=== PATIENT | female | born 1950 | race Caucasian/White ===

== ENCOUNTER 2018-08-15 23:05 | Inpatient (IN) | payer OTHER, MEDICARE ==
[2018-08-15 23:12] VITALS: BMI 34.3
[2018-08-15] MEDS ORDERED: morphine CARPU-JECT 2 MG/1 ML DISP.SYRIN IVPUSH ONE (23:22)
[2018-08-15] MEDS ORDERED: SODIUM CHLORIDE 1,000 ML IV ONE ×2 (23:22)
--- NOTE | 2018-08-15 23:25 | PDOC ---
Documentation entered by Rosy Pfeiffer SCRIBE, acting as scribe for Celeste Cortez MD. Celeste Cortez MD: This documentation has been prepared by the Margarette coughlin Xhesika, SCRIBE, under my direction and personally reviewed by me in its entirety. I confirm that the documentation accurately reflects all work, treatment, procedures, and medical decision making performed by me. History of Present Illness - General Chief Complaint: Nausea/Vomiting Stated Complaint: N/V/D History Source: Patient Exam Limitations: No Limitations - History of Present Illness Initial Comments: 08/15/18 23:24 Assessment and plan: This is a 67-year-old female with history of diverticulitis and anxiety who comes in complaining of a lot of stress in her life and nausea vomiting and diarrhea secondary to the stress. However she also is complaining of fever and left lower quadrant abdominal pain. You should including CBC, comp, lipase, CAT scan abdomen and pelvis, UA, blood cultures, urine culture Patient being hydrated as she was quite tachycardic at 135 blood pressure however was good and clinically she looked dry. 03:00 Reevaluation patient is in a significant amount of discomfort. Patient's complaining now of back and left flank pain. Patient's CAT scan was normal there was no acute pathology Patient has a very mildly elevated white count and her alkaline phosphatase is very mildly elevated otherwise her blood work is unremarkable. We'll bring patient in for some further hydration and pain The patient is a 67 year old female, with a significant past medical history of anxiety, HTN, and diverticulitis who presents to the emergency department with 2 days of nausea, vomiting and diarrhea. The patient states she is endorsing abdominal pain with subjective fevers, secondary to her symptoms. The patient states she has a sick family member at home and whenever that happens this is how her body responds to stress. The patient states she has been taking pepto bismol and tums with mild relief. The patient was seen at [facility] and was advised to come to the ED for further evaluations. The patient denies chest pain, shortness of breath, headache or dizziness. The patient denies dysuria, frequency, urgency or hematuria. PAST MEDICAL HISTORY: anxiety, HTN, and diverticulitis PAST SURGICAL HISTORY: no significant history FAMILY HISTORY: no pertinent history SOCIAL HISTORY: Pt lives with family and is employed. MEDICATIONS: reviewed ALLERGIES: As per nursing notes 08/16/18 03:42 Admission EKG was done that shows sinus tachycardia at a rate of 122, left anterior hemiblock some LVH with re-pole abnormality and some ST depressions in the 3 through V6. Possible anterior some endocardial injury. Cardiac enzymes were added to current blood work. Past History - Past Medical History Allergies/Adverse Reactions: Allergies Allergy/AdvReac Type Severity Reaction Status Date / Time No Known Allergies Allergy Unverified 08/15/18 23:06 Home Medications: Ambulatory Orders Clonazepam [Klonopin] 1 mg PO DAILY 08/15/18 Review of Systems - Review of Systems Able to Perform ROS?: Yes Comments:: 08/15/18 23:30 General: (+) subjective fevers. No chills, no weakness, no weight loss HEENT: No change in vision. No sore throat,. No ear pain CardioVascular: No chest pain or shortness of breath Respiratory:No cough, or wheezing. Gastrointestinal: (+) vomiting, diarrhea. (+) nausea. Noconstipation, No rectal bleeding Genitourinary: No dysuria, hematuria, or frequency Musculoskeletal: (+) abdominal pain. No joint or muscle pain or swelling Neurologic: No headache, vertigo, dizziness or loss of consciousness Psychiatric: nor depression Skin: No rashes or easy bruising Endocrine: no increased thirst or abnormal weight change Allergic: no skin or latex allergy All other systems reviewed and normal *Physical Exam - Vital Signs Last Vital Signs Temp Pulse Resp BP Pulse Ox 98.5 F 135 H 14 159/100 95 08/15/18 23:08 08/15/18 23:08 08/15/18 23:08 08/15/18 23:08 08/15/18 23:08 - Physical Exam Comments: 08/15/18 23:30 General: Well-nourished well-developed individual, no acute distress HEENT: Throat: (+) dry mucous membranes. Normal, tonsils normal, no erythema or exudate Neck: Supple, no meningeal signs, no lymphadenopathy Eyes::Pupils equal reactive and round, extraocular motion intact Chest: Nontender to palpation Cardiac: S1-S2 normal, regular rate and rhythm, no murmurs rubs or gallops Respiratory: Lungs clear to auscultation bilateral Abdomen: (+) LLQ tenderness. (+) bowel sounds decreased but present. Soft, nondistended Extremities: Warm, dry, no cyanosis, clubbing, or edema Skin: No rashes Neuro: Alert and oriented x3, nonfocal exam, grossly intact, normal gait Psych: Normal mood and affect ED Treatment Course - LABORATORY CBC & Chemistry Diagram: 08/16/18 00:00 08/16/18 00:00 - RADIOLOGY Radiology Studies Ordered: Category Date Time Status ABDOMEN & PELVIS CT WITH CONTR [CT] Stat CT Scan 08/15/18 23:21 Ordered *DC/Admit/Observation/Transfer Diagnosis at time of Disposition: Dehydration, Tachycardia Abdominal pain Qualifiers: Abdominal location: lower abdomen, unspecified Qualified Code(s): R10.30 - Lower abdominal pain, unspecified Nausea and vomiting Qualifiers: Vomiting type: unspecified Vomiting Intractability: non-intractable Qualified Code(s): R11.2 - Nausea with vomiting, unspecified Diarrhea Qualifiers: Diarrhea type: unspecified type Qualified Code(s): R19.7 - Diarrhea, unspecified - Discharge Dispostion Condition at time of disposition: Fair Decision to Admit order: Yes - Referrals - Patient Instructions - Post Discharge Activity
[2018-08-16] MEDS ORDERED: morphine SULFATE 4 MG/ML VIAL ONE ×2 (00:24→03:01)
[2018-08-16 01:11] LABS: WHITE BLOOD COUNT 11.4 K/mm3 (4.0-10.0)
[2018-08-16 01:12] LABS: HEMATOCRIT 41.9 % (32.4-45.2); HEMOGLOBIN 13.7 GM/dL (10.7-15.3); MCH 30.1 pg (25.7-33.7); MCHC 32.8 g/dl (32.0-36.0); MEAN CELL VOLUME 91.7 fl (80-96); MEAN PLT VOLUME 8.3 fl (7.5-11.1); PLATELET COUNT 370 K/MM3 (134-434); RBC 4.57 M/mm3 (3.60-5.2); RDW 13.4 % (11.6-15.6)
[2018-08-16 01:13] LABS: BASO % 0.8 % (0-2.0); EOS % 0.4 % (0-4.5); LYMPH % 12.6 % (8-40); MONO % 10.9 % (3.8-10.2); NEUT % 75.3 % (42.8-82.8)
[2018-08-16 01:39] LABS: POTASSIUM 3.6 mmol/L (3.5-5.1)
[2018-08-16 01:40] LABS: ALBUMIN 3.6 g/dl (3.4-5.0); BILIRUBIN,TOTAL 0.4 mg/dL (0.2-1); CALCIUM 10.2 mg/dL (8.5-10.1); TOT PROT 8.6 g/dl (6.4-8.2)
[2018-08-16] MEDS ORDERED: morphine CARPU-JECT 2 MG/1 ML DISP.SYRIN IVPUSH ONE (02:58)
[2018-08-16] MEDS ORDERED: KETOROLAC TROMETHAMINE 30 MG/1 ML VIAL IVPUSH ONE (02:58)
[2018-08-16] MEDS ORDERED: KETOROLAC TROMETHAMINE 30 MG/1 ML VIAL ONE (03:00)
[2018-08-16] MEDS ORDERED: ALPRAZolam 1 MG TABLET PO PRN (04:02)
[2018-08-16] MEDS ORDERED: ALPRAZolam 0.25 MG TABLET ONE (04:10)
--- NOTE | 2018-08-16 07:43 | HP ---
"CHIEF COMPLAINT: LLQ pain PCP: Dr. Hudson, [place] HISTORY OF PRESENT ILLNESS: 67 year-old female with a PMH significant for HTN, diverticulitis, recurrent sinusitis, and anxiety. Presented to the ED with a complaint of LLQ pain with subjective fever and diarrhea x 2 days. She describes the pain as waxing and waning, worse with movement. She reports 6 watery diarrheal movements every day. She took her temperature at home and it was 102. Patient has had 3-4 diverticulitis flares, last one about two years ago when she was hospitalized. Two recent courses of PO antibiotics for recurrent sinusitis, two months ago and again two weeks ago. En route to the ED she felt her heart pounding and beating fast. She denies chest pain, SOB, MORRIS, orthopnea, but last week her both legs swelled up. Patient vague about home medications, cannot recall what meds she is on. ER course was notable for: (1) BP 176/96, p115 (2) ECG: T wave inversions (3) Troponin neg x 1 Recent Travel: No PAST MEDICAL HISTORY: Hypertension Diverticulitis Anxiety PAST SURGICAL HISTORY: Lumbar spine surgery (S, 2015) C-sections x 2 Right torn meniscus repair Appendectomy Social History: Smoking: Alcohol: Drugs: Family History: Allergies No Known Allergies Allergy (Unverified 08/15/18 23:06) HOME MEDICATIONS: Ambulatory Orders Clonazepam [Klonopin] 1 mg PO DAILY 08/15/18 CONSTITUTIONAL: +fever, loss of appetite Absent: chills, diaphoresis, generalized weakness, malaise, weight change HEENT: Absent: rhinorrhea, nasal congestion, throat pain, throat swelling, difficulty swallowing, mouth swelling, ear pain, eye pain, visual changes CARDIOVASCULAR: +pounding, rapid heart beat Absent: chest pain, syncope, palpitations, irregular heart rate, lightheadedness , peripheral edema RESPIRATORY: Absent: cough, shortness of breath, dyspnea with exertion, orthopnea, wheezing, stridor, hemoptysis GASTROINTESTINAL: +LLQ pain, nausea, diarrhea Absent: abdominal distension, constipation, melena, hematochezia GENITOURINARY: Absent: dysuria, frequency, urgency, hesitancy, hematuria, flank pain, genital pain MUSCULOSKELETAL: Absent: myalgia, arthralgia, joint swelling, back pain, neck pain SKIN: Absent: rash, itching, pallor HEMATOLOGIC/IMMUNOLOGIC: Absent: easy bleeding, easy bruising, lymphadenopathy, frequent infections ENDOCRINE: Absent: unexplained weight gain, unexplained weight loss, heat intolerance, cold intolerance NEUROLOGIC: Absent: headache, focal weakness or paresthesias, dizziness, unsteady gait, seizure, mental status changes, bladder or bowel incontinence PSYCHIATRIC: Absent: anxiety, depression, suicidal or homicidal ideation, hallucinations. PHYSICAL EXAMINATION Vital Signs - 24 hr 08/15/18 08/16/18 08/16/18 23:08 02:12 04:42 Temperature 98.5 F 97.9 F Pulse Rate 135 H Pulse Rate [ 115 H 103 H Right Radial] Respiratory 14 15 14 Rate Blood Pressure 159/100 Blood Pressure 176/96 H 133/70 [Left Arm] O2 Sat by Pulse 95 95 99 Oximetry (%) 08/16/18 08/16/18 05:05 05:06 Temperature 97.7 F Pulse Rate 99 H Pulse Rate [ Right Radial] Respiratory 19 14 Rate Blood Pressure 153/78 Blood Pressure [Left Arm] O2 Sat by Pulse 99 Oximetry (%) GENERAL: Awake, alert, and fully oriented, in no acute distress. Anxious. HEAD: Normal with no signs of trauma. EYES: Pupils equal, round and reactive to light, extraocular movements intact, sclera anicteric, conjunctiva clear. No lid lag. EARS, NOSE, THROAT: Ears normal, nares patent, oropharynx clear without exudates. Dry mucous membranes. LUNGS: Breath sounds equal, clear to auscultation bilaterally. No wheezes, and no crackles. No accessory muscle use. HEART: Regular rate and rhythm, normal S1 and S2 +murmur ABDOMEN: LLQ tenderness; well-healed surgical scar MUSCULOSKELETAL: Normal range of motion at all joints. No bony deformities or tenderness. No CVA tenderness. UPPER EXTREMITIES: 2+ pulses, warm, well-perfused. No cyanosis. No clubbing. No peripheral edema. LOWER EXTREMITIES: 2+ pulses, warm, well-perfused. No calf tenderness. Trace bilateral edema NEUROLOGICAL: Cranial nerves II-XII intact. Normal speech. Laboratory Results - last 24 hr 08/15/18 08/16/18 08/16/18 23:24 00:00 00:00 WBC 11.4 H RBC 4.57 Hgb 13.7 Hct 41.9 MCV 91.7 MCH 30.1 MCHC 32.8 RDW 13.4 Plt Count 370 MPV 8.3 Absolute Neuts (auto) 8.6 H Neutrophils % 75.3 Lymphocytes % 12.6 Monocytes % 10.9 H Eosinophils % 0.4 Basophils % 0.8 Sodium 135 L Potassium 3.6 Chloride 95 L Carbon Dioxide 28 Anion Gap 12 BUN 11 Creatinine 1.0 Est GFR (CKD-EPI)AfAm 67.04 Est GFR (CKD-EPI)NonAf 57.84 Random Glucose 124 H Calcium 10.2 H Total Bilirubin 0.4 AST 24 ALT 18 Alkaline Phosphatase 130 H Creatine Kinase 124 Troponin I 0.05 Total Protein 8.6 H Albumin 3.6 Lipase 98 Urine Color Yellow Urine Appearance Clear Urine pH 5.5 Urine Protein 1+ H Urine Glucose (UA) Negative Urine Ketones Negative Urine Blood Negative Urine Nitrite Negative Urine Bilirubin Negative Urine Urobilinogen 0.2 Ur Leukocyte Esterase Negative ASSESSMENT/PLAN: 67 year-old female with a PMH significant for HTN, diverticulitis, recurrent sinusitis, and anxiety. Admitted for LLQ abdominal pain, diarrhea, reported fever. LLQ abdominal pain Diarrhea --afebrile, mild leukocytosis; last diarrheal movement 24 hours ago per patient; no episodes since arrival to hospital --CTAP: unremarkable, no sign of diverticulitis --recent antibiotic use --send stool studies: c.diff, culture, occult blood --start empiric metronidazole, levofloxacin EKG changes Elevated troponin --ECG: TWI V2-V6 --troponin 0.0.5-->0.58 --Echo: LV normal, EF 55%; RV normal; trace AK --cardiology consult pending --ASA 325mg x 1 given --home med list verified with pharmacy, prescribed Toprol XL 100mg TID?? PCP : Dr. Lulu Alvarado, will call office Anxiety --on multiple medications, see I STOP below --continue Prozac The Drug Utilization Report below displays all of the controlled substance prescriptions, if any, that your patient has filled in the last twelve months. The information displayed on this report is compiled from pharmacy submissions to the Department, and accurately reflects the information as submitted by the pharmacies. This report was requested by: Mary Montano | Reference #: [id number] Others' Prescriptions Patient Name: Herlinda Fernandez Date: 1950 Address: [address] [place] [address] Sex: Female Rx Written Rx Dispensed Drug Quantity Days Supply Prescriber Name 08/06/2018 08/06/2018 zolpidem tartrate 5 mg tablet 30 30 Jenny, Melyssa Garcia MD 07/26/2018 07/26/2018 hydrocodone-acetaminophen 7.5-325 mg tablet 120 30 Jenny , Melyssa Garcia MD 07/12/2018 07/19/2018 diazepam 5 mg tablet 120 30 Jenny, Melyssa Garcia MD 06/26/2018 06/27/2018 zolpidem tart er 6.25 mg tab 30 30 Jenny, Melyssa Garcia MD 06/22/2018 06/22/2018 hydrocodone-acetaminophen 7.5-325 mg tablet 120 30 Jenny , Melyssa Garcia MD 06/12/2018 06/12/2018 diazepam 5 mg tablet 120 30 Jenny, Melyssa Garcia MD 12/30/2017 05/24/2018 zolpidem tart er 6.25 mg tab 30 30 JennyMelyssa MD 05/21/2018 05/21/2018 hydrocodone-acetaminophen 7.5-325 mg tablet 120 30 Jenny , Melyssa Garcia MD 04/25/2018 04/27/2018 diazepam 5 mg tablet 120 30 JennyMelyssa MD 12/30/2017 04/24/2018 zolpidem tart er 6.25 mg tab 30 30 JennyMelyssa MD 04/24/2018 04/24/2018 hydrocodone-acetaminophen 7.5-325 mg tablet 120 30 Jenny , Melyssa Garcia MD 12/30/2017 03/25/2018 zolpidem tart er 6.25 mg tab 30 30 JennyMelyssa MD 03/23/2018 03/25/2018 hydrocodone-acetaminophen 7.5-325 mg tablet 120 30 Jenny , Melyssa Garcia MD 09/08/2017 03/06/2018 diphenoxylate-atropine 2.5-0.025 mg tablet 60 15 Jenny, Melyssa Garcia MD 12/30/2017 02/24/2018 zolpidem tart er 6.25 mg tab 30 30 Jenny, Melyssa Garcia MD 02/19/2018 02/20/2018 diazepam 5 mg tablet 120 30 Jenny, Melyssa Garcia MD 02/19/2018 02/20/2018 hydrocodone-acetaminophen 7.5-325 mg tablet 120 30 Jenny , Melyssa Garcia MD 12/30/2017 01/27/2018 zolpidem tart er 6.25 mg tab 30 30 Jenny, Melyssa Garcia MD 01/17/2018 01/18/2018 hydrocodone-acetaminophen 7.5-325 mg tablet 120 30 Jenny , Melyssa Garcia MD 01/12/2018 01/12/2018 diazepam 5 mg tablet 120 30 Jenny, Melyssa Garcia MD 01/05/2018 01/05/2018 diazepam 5 mg tablet 30 10 Jenny, Melyssa Garcia MD 12/30/2017 12/31/2017 zolpidem tart er 6.25 mg tab 30 30 JennyMelyssa MD 12/22/2017 12/22/2017 clonazepam 1 mg tablet 60 30 Jenny, Melyssa Garcia MD 12/18/2017 12/19/2017 oxycodone-acetaminophen 7.5-325 mg tablet 120 30 Jenny, Melyssa Garcia MD 07/05/2017 12/02/2017 zolpidem tartrate 5 mg tablet 30 30 JennyMelyssa MD 11/15/2017 11/15/2017 oxycodone-acetaminophen 7.5-325 mg tablet 120 30 JennyMelyssa MD 11/10/2017 11/12/2017 clonazepam 1 mg tablet 60 30 JennyMelyssa MD 07/05/2017 11/01/2017 zolpidem tartrate 5 mg tablet 30 30 JennyMelyssa MD 10/10/2017 10/11/2017 oxycodone-acetaminophen 7.5-325 mg tablet 120 30 JennyMelyssa MD 07/05/2017 10/05/2017 zolpidem tartrate 5 mg tablet 30 30 JennyMelyssa MD 09/09/2017 09/09/2017 oxycodone-acetaminophen 7.5-325 mg tablet 120 30 JennyMelyssa MD 09/09/2017 09/09/2017 clonazepam 1 mg tablet 90 30 JennyMelyssa MD 09/08/2017 09/08/2017 diphenoxylate-atropine 2.5-0.025 mg tablet 60 15 Melyssa Alvarado MD 07/05/2017 09/06/2017 zolpidem tartrate 5 mg tablet 30 30 Melyssa Alvarado MD Visit type - Emergency Visit Emergency Visit: Yes ED Registration Date: 08/16/18 Care time: The patient presented to the Emergency Department on the above date and was hospitalized for further evaluation of their emergent condition. - New Patient This patient is new to me today: Yes Date on this admission: 08/16/18 - Critical Care Critical Care patient: No"
[2018-08-16 08:26] LABS: CHOLESTEROL 188 mg/dl (50-200); HDL CHOLESTEROL 49 mg/dl (40-60); LDL CHOLESTEROL (ONLY DFH) 122 mg/dl (5-100); TRIGLYCERIDES 86 mg/dl (0-150)
[2018-08-16] MEDS ORDERED: ASPIRIN 81 MG CHEWABLE TABLETS PO ONE (08:30)
[2018-08-16 09:02] LABS: EPITHELIAL CELLS 1+ /hpf
[2018-08-16] MEDS: clonazePAM 0.5 MG TABLET PO SCH (09:49)
[2018-08-16] MEDS ORDERED: PATIENT'S OWN MEDICATION (NON-FORMULARY) (Clonazepam [Klonopin] 1 MG) PO SCH (10:00)
[2018-08-16] MEDS: FLUoxetine HCL 20 MG CAPSULE (FP) PO SCH (10:30)
--- NOTE | 2018-08-16 13:21 | ECHO ---
Name: INDIA GODOY Exam:Adult Echocardiogram Study Date: 08/16/2018 08:41 AM Age: 67 yrs Reason For Study: SOB Height: 64 in Weight: 201 lb BSA: 2.0 m2 MMode/2D Measurements & Calculations IVSd: 0.76 cm Ao root diam: 2.3 cm LVIDd: 4.4 cm LA dimension: 3.6 cm LVIDs: 2.1 cm LVPWd: 0.71 cm EDV(Teich): 88.3 ml LVOT diam: 2.0 cm ESV(Teich): 15.2 ml Doppler Measurements & Calculations MV E max jose: 77.7 cm/sec MV A max jose: 157.7 cm/sec MV dec slope: 745.9 cm/sec2 MV E/A: 0.49 Ao V2 max: 163.0 cm/sec LV V1 max P.7 mmHg Ao max P.6 mmHg LV V1 mean P.2 mmHg Ao V2 mean: 123.0 cm/sec LV V1 max: 96.5 cm/sec Ao mean P.5 mmHg LV V1 mean: 71.3 cm/sec Ao V2 VTI: 33.8 cm LV V1 VTI: 19.9 cm KIERRA(I,D): 1.9 cm2 KIERRA(V,D): 1.9 cm2 MR max jose: 265.6 cm/sec SV(LVOT): 63.1 ml MR max P.2 mmHg Procedure A complete two-dimensional transthoracic echocardiogram was performed (2D, M-mode, Doppler and color flow Doppler). The study was technically difficult with many images being suboptimal in quality. Left Ventricle The left ventricular size, thickness and function are normal. The left ventricular ejection fraction is normal. Ejection Fraction = 55-60%. No regional wall motion abnormalities noted. Right Ventricle The right ventricle is normal in size and function. Atria Normal left and right atrial size and function. Mitral Valve There is trace mitral regurgitation. Tricuspid Valve No tricuspid regurgitation. There was insufficient TR detected to calculate RV systolic pressure. Aortic Valve No hemodynamically significant valvular aortic stenosis. No aortic regurgitation is present. Pulmonic Valve There is no pulmonic valvular regurgitation. Great Vessels The aortic root is normal size. Pericardium/Pleura There is no pericardial effusion. Interpretation Summary The study was technically difficult with many images being suboptimal in quality. The left ventricular size, thickness and function are normal The right ventricle is normal in size and function. There is trace mitral regurgitation. MD Nigel Merlos 08/16/2018 01:20 PM
[2018-08-16] MEDS ORDERED: HEPARIN NA (PORCINE) 5,000 UNITS/ML 1ML VIAL IVPUSH PRN ×2 (14:25)
[2018-08-16] MEDS ORDERED: HEPARIN SOD,PORK IN 0.45% NACL 25,000 UNITS/500 ML INFUS.BAG IVPB SCH (14:30)
--- NOTE | 2018-08-16 14:40 | HOSP ---
Subjective - Review of Symptoms Events since last encounter: Troponins trending up, 0.05--0.58-->1.25. Plan ASA and beta selena given this morning Repeat ECG: ischemic changes V2-V6 no longer seen Repleted potassium and magnesium Started lovenox 90mg q12h Continue daily ASA 81mg Continue atorvastatin 80mg daily Continue Toprol XL: verified with office of PCP Dr. Melyssa Alvarado that patient takes Toprol XL 100mg daily; this was given this morning; home med rec updated Dispo: transfer to [facility] telemetry. Dr. Carcamo aware. Will see patient shortly. Full code. Physical Examination Vital Signs: Vital Signs Temperature 97.5 F L 08/16/18 10:00 Pulse Rate 84 08/16/18 10:00 Respiratory Rate 18 08/16/18 10:00 Blood Pressure 130/70 08/16/18 10:00 O2 Sat by Pulse Oximetry (%) 97 08/16/18 08:39 Labs: CBC, BMP 08/16/18 00:00 08/16/18 00:00
[2018-08-16] MEDS ORDERED: MAGNESIUM SULF 50% (8.12 MEQ/2 ML-1 GM VIAL) IVPB ONE (14:43)
[2018-08-16] MEDS ORDERED: ATORVASTATIN CA 80 MG TABLET (FP) PO ONE (14:45)
[2018-08-16] MEDS ORDERED: POTASSIUM CHLORIDE TABS 20 MEQ TABLET.ER (FP) PO ONE ×2 (14:45→16:15)
[2018-08-16] MEDS ORDERED: HEPARIN INFUSION - 25,000 UNITS/500 ML INFUS.BAG IVPB SCH ×2 (14:45→14:50)
[2018-08-16] MEDS ORDERED: HEPARIN NA (PORCINE) 5,000 UNITS/ML 1ML VIAL IVPUSH ONE (14:46)
[2018-08-16] MEDS ORDERED: MAGNESIUM SULFATE IN WATER 2 GM/50 ML IVPB IVPB ONE (15:15)
[2018-08-16] MEDS: ENOXAPARIN NA (PORCINE) 100 MG/1 ML DISP.SYRIN SQ SCH (15:20)
--- NOTE | 2018-08-16 16:49 | EKG ---
Test Reason : Blood Pressure : / mmHG Vent. Rate : 122 BPM Atrial Rate : 122 BPM P-R Int : 192 ms QRS Dur : 082 ms QT Int : 312 ms P-R-T Axes : 045 -48 180 degrees QTc Int : 444 ms SINUS TACHYCARDIA POSSIBLE LEFT ATRIAL ENLARGEMENT LEFT ANTERIOR FASCICULAR BLOCK LEFT VENTRICULAR HYPERTROPHY WITH REPOLARIZATION ABNORMALITY INFERIOR INFARCT , AGE UNDETERMINED MARKED ST ABNORMALITY, POSSIBLE ANTERIOR SUBENDOCARDIAL INJURY ABNORMAL ECG WHEN COMPARED WITH ECG OF 19-APR-1999 10:23, SIGNIFICANT CHANGES HAVE OCCURRED Confirmed by KERI NIELSEN MD ([id number]) on 08/16/2018 4:49:46 PM Referred By: MD CRENSHAW Confirmed By:KERI NIELSEN MD
--- NOTE | 2018-08-16 16:50 | EKG ---
Test Reason : Blood Pressure : / mmHG Vent. Rate : 072 BPM Atrial Rate : 072 BPM P-R Int : 190 ms QRS Dur : 082 ms QT Int : 468 ms P-R-T Axes : 015 -40 -18 degrees QTc Int : 512 ms SINUS RHYTHM WITH FREQUENT PREMATURE VENTRICULAR COMPLEXES LEFT AXIS DEVIATION VOLTAGE CRITERIA FOR LEFT VENTRICULAR HYPERTROPHY POSSIBLE LATERAL INFARCT , AGE UNDETERMINED PROLONGED QT ABNORMAL ECG WHEN COMPARED WITH ECG OF 16-AUG-2018 03:29, SIGNIFICANT CHANGES HAVE OCCURRED Confirmed by KERI NIELSEN MD ([id number]) on 08/16/2018 4:49:58 PM Referred By: HORACIO DOOLEY Confirmed By:KERI NIELSEN MD
--- NOTE | 2018-08-16 18:32 | CON.CARD ---
Consult Consult Specialty:: cardio - History of Present Illness Chief Complaint: abd pain History of Present Illness: 67 F presented with hip/abd pain. reports pain in L lateral abdomen near hip--worse with movement, waxing and waning. no back pain, no radiation of above pain could reproduce the pain by pressing over the area also fever at home, reportedly 102 on 08/15. waterry diarrhea x 2 days--reports 6 watery diarrheal movements every day-- however diarrhea stopped since yesterday am. no melena or blood. denies sore throat, cough, URI sx's. Patient has had 3-4 diverticulitis flares, last one about two years ago when she was hospitalized--never had the above type of pain with those. Two recent courses of PO antibiotics for recurrent sinusitis, two months ago and again two weeks ago. En route to the ED she felt her heart pounding and beating fast. initial ECG with deep (downsloping) ischemic ST depressions across precordium > I/avL. troponin 0.05-->0.5-->1.2 never had cp or sob. ECG abnormalities normalized on repeat study abd pain resolved. echo showed normal LV fxn/wall motion. CT abdomen was technically limited study but showed no signs of diverticulitis or other acute abdominal pathology normal temp curve, mild leukocytosis. normal lactate. feels well now--IN USOH PMH: HTN denies DM never cigs +FH: father [place] 70s. one brother fatal [place] 70s. one brother PCI x multiple - Alcohol/Substance Use Hx Alcohol Use: No - Smoking History Smoking history: Unknown if ever smoked Have you smoked in the past 12 months: No Aproximately how many cigarettes per day: 0 Home Medications - Allergies Allergies/Adverse Reactions: Allergies Allergy/AdvReac Type Severity Reaction Status Date / Time No Known Allergies Allergy Unverified 08/15/18 23:06 - Home Medications Home Medications: Ambulatory Orders Clonazepam [Klonopin] 1 mg PO DAILY 08/15/18 Cyclobenzaprine HCl [Flexeril 10 mg] 10 mg PO TID PRN 08/16/18 Diazepam [Valium] 5 mg PO Q6H 08/16/18 Fluoxetine HCl [Prozac -] 40 mg PO DAILY 08/16/18 Hydrocodone/Acetaminophen [[place] 7.5-325 Tablet] 1 each PO QID PRN 08/16/18 Metoprolol Succinate [Toprol Xl] 100 mg PO DAILY 08/16/18 Zolpidem Tartrate [Ambien] 5 mg PO HS 08/16/18 Vital Signs: Vital Signs Temperature 98.5 F 08/16/18 14:00 Pulse Rate 73 08/16/18 14:00 Respiratory Rate 18 08/16/18 14:00 Blood Pressure 134/64 08/16/18 14:00 O2 Sat by Pulse Oximetry (%) 100 08/16/18 14:00 - Other Data Labs, Other Data: CBC, BMP 08/16/18 00:00 08/16/18 00:00 Troponin, BNP 08/16/18 08/16/18 08/16/18 00:00 07:10 12:54 Troponin I 0.05 0.58 H 1.25 H* Troponin, BNP 08/16/18 08/16/18 08/16/18 00:00 07:10 12:54 Troponin I 0.05 0.58 H 1.25 H* Laboratory Tests 08/16/18 08/16/18 08/16/18 00:00 00:00 07:10 WBC 11.4 H Hgb 13.7 Plt Count 370 Sodium 135 L Potassium 3.6 Carbon Dioxide 28 BUN 11 Creatinine 1.0 Lactic Acid AST 24 ALT 18 Troponin I 0.05 0.58 H Triglycerides Cholesterol Total LDL Cholesterol HDL Cholesterol Lipase 98 08/16/18 08/16/18 08/16/18 07:10 12:54 15:00 WBC Hgb Plt Count Sodium Potassium Carbon Dioxide BUN Creatinine Lactic Acid 1.1 AST ALT Troponin I 1.25 H* Triglycerides 86 Cholesterol 188 Total LDL Cholesterol 122 H HDL Cholesterol 49 Lipase Assessment/Plan CXR: weak inspiration; clear lungs/pleura ECG x2: see HPI (max 4mm downsloping STD anterior leads initially (at 3:29 am on 08/16), no ST elevation--resolved on ekg done at 14:20 on 08/16). Echo 08/16/18: nl LV/EF. no RWMA. nl RV size/fxn. normal valves. no RVSP. normal aortic root. no peric effusion NSTEMI: -no anginal sx's, however very ischemic ECG on presentation--normalized on repeat -rising troponins--will f/u serial values (ordered) -LLQ/L hip pain reproducible with palpation, exacerbated bymovement, is definitively NOT an anginal equivalent -? silent MT, vs ? sx's of heart pounding in ambulance to ER was her ACS sx -no RWMA, normal LVSF on echo -no s/sx of PE, and RV normal on echo -sx's not concerning for aortic dissection, and echo shows no retrograde involvement of pericardium/aorta root to cause troponin elevation in any event -VS's very stable, no anemia, no signs of severe infection --i.e. no identifiable triggers for Type II MT -given ASA 325, lovenox started, hi intensity atorvastatin, cont home (hi dose) metoprolol-cont this regimen for now -pt advised she should have non-urgent coronary angiogram in light of family history and markedly abnormal presenting ECG--however in light of asymptomatic status with no signs of shock, chf, or electrical instability, will defer until possibly tomorrow depending on infectious workup and temp curve. will d/w interventionalist whether fever (with no identifiable infectious source) > 24 hrs ago is an ongoing concern. -f/u BCx's (pending) and monitor temp curve overnight HTN: -variable bp's here -on toprol 100 po daily at home--cont here -add amlodipine for aggressive bp control in face of ischemic myocardium HPL: -LDL 120s here -atorva 80 started for ACS treatment abd pain, diarrhea: -TDS CT scan unremarkable -remainder of w/u per hospitalist
[2018-08-16] MEDS: amLODIPine BESYLATE 5 MG TABLET (FP) PO SCH (18:54)
--- NOTE | 2018-08-16 21:19 | HOSP ---
Subjective - Review of Symptoms Events since last encounter: Hospitalist Encounter Patient transferred from [facility] for Elevated Troponin- NSTEMI. Subjective: Arrived to bedside, patient is awake, alert and oriented. She reports dizziness and SOB on ambulation and exertion. Patient reports having "chest pounding" sensation while being transported in the ambulance, lasting 4 seconds- resolved now. She attributes the episode to the bumpy ambulance ride. Patient reports having nausea, non bilious non bloody undigested food emesis with watery non bloody diarrhea since last Monday. Patient reports having generalized weakness as well. Assessment: 67 year-old female with a PMH significant for HTN, diverticulitis, recurrent sinusitis, and anxiety. Admitted for LLQ abdominal pain, diarrhea, reported fever. Plan: Will continue current NSTEMI regimen Serial Troponins Repeat EKG Will d/c Levofloxacin, and start Ceftriaxone secondary to prolonged QT General: Yes: Malaise Cardiovascular: Yes: Light Headedness Neurological: Yes: Weakness Physical Examination Vital Signs: Vital Signs Temperature 98.1 F 08/16/18 18:30 Pulse Rate 82 08/16/18 18:30 Respiratory Rate 19 08/16/18 18:30 Blood Pressure 142/79 08/16/18 18:30 O2 Sat by Pulse Oximetry (%) 100 08/16/18 14:00 Constitutional: Yes: Well Nourished, No Distress, Calm Eyes: Yes: WNL, Conjunctiva Clear, EOM Intact, PERRL HENT: Yes: WNL, Atraumatic, Normocephalic Neck: Yes: WNL, Supple, Trachea Midline Cardiovascular: Yes: WNL, Regular Rate and Rhythm, S1, S2 Respiratory: Yes: Regular, CTA Bilaterally, On Nasal O2, SOB on Exertion Gastrointestinal: Yes: Soft, Abdomen, Obese, Hyperactive Bowel Sounds Breast(s): Yes: WNL Musculoskeletal: Yes: WNL Extremities: Yes: WNL Edema: Yes Edema: LLE: Trace, RLE: Trace Peripheral Pulses WNL: Yes Neurological: Yes: WNL, Alert, Oriented, Cran Nerves II-XII Intact ...Motor Strength: WNL Psychiatric: Yes: WNL, Alert, Oriented Labs: CBC, BMP 08/16/18 00:00 08/16/18 00:00 Laboratory Results - last 24 hr 0508/16/18 08/16/18 23:24 00:00 00:00 WBC 11.4 H RBC 4.57 Hgb 13.7 Hct 41.9 MCV 91.7 MCH 30.1 MCHC 32.8 RDW 13.4 Plt Count 370 MPV 8.3 Absolute Neuts (auto) 8.6 H Neutrophils % 75.3 Lymphocytes % 12.6 Monocytes % 10.9 H Eosinophils % 0.4 Basophils % 0.8 Sodium 135 L Potassium 3.6 Chloride 95 L Carbon Dioxide 28 Anion Gap 12 BUN 11 Creatinine 1.0 Est GFR (CKD-EPI)AfAm 67.04 Est GFR (CKD-EPI)NonAf 57.84 Random Glucose 124 H Lactic Acid Calcium 10.2 H Magnesium Total Bilirubin 0.4 AST 24 ALT 18 Alkaline Phosphatase 130 H Creatine Kinase 124 Troponin I 0.05 Total Protein 8.6 H Albumin 3.6 Triglycerides Cholesterol Total LDL Cholesterol HDL Cholesterol Lipase 98 Urine Color Yellow Urine Appearance Clear Urine pH 5.5 Urine Protein 1+ H Urine Glucose (UA) Negative Urine Ketones Negative Urine Blood Negative Urine Nitrite Negative Urine Bilirubin Negative Urine Urobilinogen 0.2 Ur Leukocyte Esterase Negative Urine RBC 0-3 Urine WBC 0-3 Ur Transition Epith Cell 1+ Urine Bacteria 3+ 08/16/18 08/16/18 08/16/18 07:10 07:10 12:00 WBC RBC Hgb Hct MCV MCH MCHC RDW Plt Count MPV Absolute Neuts (auto) Neutrophils % Lymphocytes % Monocytes % Eosinophils % Basophils % Sodium Potassium Chloride Carbon Dioxide Anion Gap BUN Creatinine Est GFR (CKD-EPI)AfAm Est GFR (CKD-EPI)NonAf Random Glucose Lactic Acid Calcium Magnesium 1.5 L Total Bilirubin AST ALT Alkaline Phosphatase Creatine Kinase Troponin I 0.58 H Total Protein Albumin Triglycerides 86 Cholesterol 188 Total LDL Cholesterol 122 H HDL Cholesterol 49 Lipase Urine Color Urine Appearance Urine pH Urine Protein Urine Glucose (UA) Urine Ketones Urine Blood Urine Nitrite Urine Bilirubin Urine Urobilinogen Ur Leukocyte Esterase Urine RBC Urine WBC Ur Transition Epith Cell Urine Bacteria 08/16/18 08/16/18 12:54 15:00 WBC RBC Hgb Hct MCV MCH MCHC RDW Plt Count MPV Absolute Neuts (auto) Neutrophils % Lymphocytes % Monocytes % Eosinophils % Basophils % Sodium Potassium Chloride Carbon Dioxide Anion Gap BUN Creatinine Est GFR (CKD-EPI)AfAm Est GFR (CKD-EPI)NonAf Random Glucose Lactic Acid 1.1 Calcium Magnesium Total Bilirubin AST ALT Alkaline Phosphatase Creatine Kinase Troponin I 1.25 H* Total Protein Albumin Triglycerides Cholesterol Total LDL Cholesterol HDL Cholesterol Lipase Urine Color Urine Appearance Urine pH Urine Protein Urine Glucose (UA) Urine Ketones Urine Blood Urine Nitrite Urine Bilirubin Urine Urobilinogen Ur Leukocyte Esterase Urine RBC Urine WBC Ur Transition Epith Cell Urine Bacteria Intake & Output 08/13/18 08/14/18 08/15/18 08/16/18 23:59 23:59 23:59 23:59 Intake Total 200 Output Total 2 Balance 198 Weight 90.718 kg 90.718 kg Current Medications Generic Name Dose Route Start Last Admin Trade Name Freq PRN Reason Stop Dose Admin Amlodipine Besylate 5 mg 08/16/18 18:45 08/16/18 18:54 Norvasc - PO 5 mg DAILY ANTONIA Administration Aspirin 81 mg 08/17/18 10:00 Ecotrin - PO DAILY ANTONIA Atorvastatin Calcium 80 mg 08/17/18 10:00 Lipitor - PO DAILY ANTONIA Clonazepam 1 mg 08/16/18 10:00 08/16/18 09:49 Klonopin - PO 1 mg DAILY ANTONIA Administration Enoxaparin Sodium 90 mg 08/16/18 15:00 08/16/18 15:20 Lovenox - SQ 90 mg Q12H ANTONIA Administration Fluoxetine HCl 40 mg 08/16/18 10:00 08/16/18 10:30 Prozac - PO 40 mg DAILY ANTONIA Administration Metronidazole 500 mg in 100 mls @ 100 mls/hr 08/16/18 10:00 08/16/18 18:55 Flagyl 500mg Premixed Ivpb - IVPB 100 mls/hr Q8H-IV ANTONIA Administration Levofloxacin 750 mg in 150 mls @ 100 mls/hr 08/17/18 10:00 Levaquin 750 Mg Premixed Ivpb - IVPB DAILY [facility] Protocol Metoprolol Succinate 100 mg 08/16/18 10:00 08/16/18 10:31 Toprol Xl - PO 100 mg DAILY ANTONIA Administration Hospitalist Encounter Outcome: Troponin resulted 2.27, patient denies CP RN to call Cardiology for update Will keep NPO after midnight- probable transfer for Cath
[2018-08-16] MEDS ORDERED: MORPHINE SULFATE 2 MG/ML VIAL IVPUSH ONE (22:01)
[2018-08-17] MEDS ORDERED: DEXTROSE 5%-0.45% SALINE 1,000 ML IV SCH (00:01)
[2018-08-17] MEDS ORDERED: guaiFENesin 200 MG/10 ML 10 ML UNIT-DOSE CUPS PO PRN (01:59)
[2018-08-17] MEDS: ENOXAPARIN NA (PORCINE) 100 MG/1 ML DISP.SYRIN SQ SCH (02:12)
[2018-08-17 06:38] LABS: BASO % 0.9 % (0-2.0); EOS % 1.7 % (0-4.5); HEMATOCRIT 32.2 % (32.4-45.2); HEMOGLOBIN 10.8 GM/dL (10.7-15.3); LYMPH % 12.8 % (8-40); MCH 31.1 pg (25.7-33.7); MCHC 33.5 g/dl (32.0-36.0); MEAN CELL VOLUME 92.6 fl (80-96); MEAN PLT VOLUME 7.4 fl (7.5-11.1); MONO % 9.9 % (3.8-10.2); NEUT % 74.7 % (42.8-82.8); PLATELET COUNT 296 K/MM3 (134-434); RBC 3.47 M/mm3 (3.60-5.2); RDW 13.1 % (11.6-15.6); WHITE BLOOD COUNT 8.4 K/mm3 (4.0-10.0)
[2018-08-17 06:59] LABS: CALCIUM 8.1 mg/dL (8.5-10.1); CREATININE 0.8 mg/dL (0.55-1.3); POTASSIUM 3.8 mmol/L (3.5-5.1)
[2018-08-17] MEDS ORDERED: cefTRIAXone SODIUM 1 GM VIAL ONE (08:39)
[2018-08-17] MEDS ORDERED: DEXTROSE 5%-WATER - 50 ML IVPB ONE (08:40)
--- NOTE | 2018-08-17 08:55 | PN ---
Progress Note, Physician Chief Complaint: Seen and examined No CP, c/o dry cough Enzymes trending down No fever, WBC down TELE: NSR w/ PVCs - Current Medication List Current Medications: Active Medications Amlodipine Besylate (Norvasc -) 5 mg PO DAILY [facility] Last Admin: 08/16/18 18:54 Dose: 5 mg Aspirin (Ecotrin -) 81 mg PO DAILY [facility] Atorvastatin Calcium (Lipitor -) 80 mg PO DAILY [facility] Clonazepam (Klonopin -) 1 mg PO DAILY [facility] Last Admin: 08/16/18 09:49 Dose: 1 mg Enoxaparin Sodium (Lovenox -) 90 mg SQ Q12H [facility] Last Admin: 08/17/18 02:12 Dose: 90 mg Fluoxetine HCl (Prozac -) 40 mg PO DAILY [facility] Last Admin: 08/16/18 10:30 Dose: 40 mg Guaifenesin (Robitussin -) 10 ml PO Q6H PRN PRN Reason: COUGH Last Admin: 08/17/18 02:11 Dose: 10 ml Metronidazole (Flagyl 500mg Premixed Ivpb -) 500 mg in 100 mls @ 100 mls/hr IVPB Q8H-IV [facility] Last Admin: 08/17/18 02:13 Dose: 100 mls/hr Ceftriaxone Sodium 1 gm/ (Dextrose) 50 mls @ 100 mls/hr IVPB DAILY [facility]; Protocol Dextrose/Sodium Chloride (D5-1/2ns -) 1,000 mls @ 42 mls/hr IV ASDIR [facility] Last Admin: 08/16/18 23:25 Dose: 42 mls/hr Metoprolol Succinate (Toprol Xl -) 100 mg PO DAILY [facility] Last Admin: 08/16/18 10:31 Dose: 100 mg - Objective Vital Signs: Vital Signs Temperature 98.7 F 08/17/18 07:38 Pulse Rate 87 08/17/18 07:38 Respiratory Rate 18 08/17/18 07:38 Blood Pressure 146/81 08/17/18 07:38 O2 Sat by Pulse Oximetry (%) 98 08/16/18 22:00 Constitutional: Yes: No Distress Cardiovascular: Yes: Regular Rate and Rhythm Respiratory: Yes: Rhonchi Gastrointestinal: Yes: Soft, Abdomen, Obese Edema: No Neurological: Yes: Alert Labs: CBC, BMP 08/17/18 05:45 08/17/18 05:45 Microbiology 08/16/18 00:00 Blood - Peripheral Venous Blood Culture - Preliminary NO GROWTH OBTAINED AFTER 24 HOURS, INCUBATION TO CONTINUE FOR 4 DAYS. 08/15/18 23:24 Blood - Peripheral Venous Blood Culture - Preliminary NO GROWTH OBTAINED AFTER 24 HOURS, INCUBATION TO CONTINUE FOR 4 DAYS. Laboratory Tests 08/16/18 08/16/18 08/16/18 00:00 00:00 12:54 WBC 11.4 H Hgb Plt Count Sodium Potassium Creatinine Creatine Kinase 124 Troponin I 0.05 1.25 H* 08/16/18 08/17/18 08/17/18 20:30 05:45 05:45 WBC 8.4 Hgb 10.8 Plt Count 296 Sodium 138 Potassium 3.8 Creatinine 0.8 Creatine Kinase Troponin I 2.27 H* 08/17/18 05:45 WBC Hgb Plt Count Sodium Potassium Creatinine Creatine Kinase Troponin I 1.74 H* - ....Imaging Chest X-ray: Report Reviewed EKG: Image Reviewed Assessment/Plan ECG x2: see HPI (max 4mm downsloping STD anterior leads initially (at 3:29 am on 08/16), no ST elevation--resolved on ekg done at 14:20 on 08/16). Echo 08/16/18: nl LV/EF. no RWMA. nl RV size/fxn. normal valves. no RVSP. normal aortic root. no peric effusion NSTEMI: -no anginal sx's, however very ischemic ECG on presentation--normalized on repeat -+ TNI -? silent NE, vs ? sx's of heart pounding in ambulance to ER was her ACS sx -no RWMA, normal LVSF on echo -no s/sx of PE, and RV normal on echo -sx's not concerning for aortic dissection, and echo shows no retrograde involvement of pericardium/aorta root to cause troponin elevation in any event -VS's very stable, no anemia, no signs of severe infection --i.e. no identifiable triggers for Type II NE -given ASA 325, lovenox started, hi intensity atorvastatin, cont home (hi dose) metoprolol-cont this regimen for now - HTN: -stable -add amlodipine for aggressive bp control in face of ischemic myocardium HPL: -LDL 120s here -atorva 80 started for ACS treatment abd pain, diarrhea: -TDS CT scan unremarkable -remainder of w/u per hospitalist
[2018-08-17] MEDS: amLODIPine BESYLATE 5 MG TABLET (FP) PO SCH (09:48)
[2018-08-17] MEDS: clonazePAM 0.5 MG TABLET PO SCH (09:48)
[2018-08-17] MEDS: FLUoxetine HCL 20 MG CAPSULE (FP) PO SCH (09:48)
[2018-08-17] MEDS ORDERED: ATORVASTATIN CA 80 MG TABLET (FP) PO SCH (10:00)
[2018-08-17] MEDS ORDERED: ASPIRIN COATED 81 MG TABLET.EC PO SCH (10:00)
[2018-08-17] MEDS ORDERED: CEFTRIAXONE 1 GM in DEXTROSE 5%-WATER - 50 ML IVPB SCH (10:00)
--- NOTE | 2018-08-17 13:04 | PN ---
Progress Note, Physician Chief Complaint: weakness History of Present Illness: Patient is a 67 year old female with a significant past medical history of hypertension, diverticulitis, recurrent sinusitis, and anxiety. Presented to the ED with a complaint of LLQ pain with subjective fevers of 102 and diarrhea for apx 2 days. En route to the ED she felt her heart pounding and beating fast. She denies chest pain, SOB, MORRIS, orthopnea, but last week her both legs swelled up. She was initially admitted to [facility] and transferred to [facility] for elevated troponins. She will be tranferred to [facility] for cardiac cath today. Imaging. ECG: T wave inversions, troponins 1.25, 2.27, 1.74 - Current Medication List Current Medications: Active Medications Amlodipine Besylate (Norvasc -) 5 mg PO DAILY [facility] Last Admin: 08/17/18 09:48 Dose: 5 mg Aspirin (Ecotrin -) 81 mg PO DAILY [facility] Last Admin: 08/17/18 09:47 Dose: 81 mg Atorvastatin Calcium (Lipitor -) 80 mg PO DAILY [facility] Last Admin: 08/17/18 09:48 Dose: 80 mg Clonazepam (Klonopin -) 1 mg PO DAILY [facility] Last Admin: 08/17/18 09:48 Dose: 1 mg Enoxaparin Sodium (Lovenox -) 90 mg SQ Q12H [facility] Last Admin: 08/17/18 02:12 Dose: 90 mg Fluoxetine HCl (Prozac -) 40 mg PO DAILY [facility] Last Admin: 08/17/18 09:48 Dose: 40 mg Guaifenesin (Robitussin -) 10 ml PO Q6H PRN PRN Reason: COUGH Last Admin: 08/17/18 02:11 Dose: 10 ml Metronidazole (Flagyl 500mg Premixed Ivpb -) 500 mg in 100 mls @ 100 mls/hr IVPB Q8H-IV [facility] Last Admin: 08/17/18 09:47 Dose: 100 mls/hr Ceftriaxone Sodium 1 gm/ (Dextrose) 50 mls @ 100 mls/hr IVPB DAILY [facility]; Protocol Last Admin: 08/17/18 09:48 Dose: 100 mls/hr Dextrose/Sodium Chloride (D5-1/2ns -) 1,000 mls @ 42 mls/hr IV ASDIR [facility] Last Admin: 08/16/18 23:25 Dose: 42 mls/hr Metoprolol Succinate (Toprol Xl -) 100 mg PO DAILY [facility] Last Admin: 08/17/18 09:49 Dose: 100 mg - Objective Vital Signs: Vital Signs Temperature 98.7 F 08/17/18 07:38 Pulse Rate 85 08/17/18 09:44 Respiratory Rate 18 08/17/18 09:44 Blood Pressure 176/92 H 08/17/18 09:44 O2 Sat by Pulse Oximetry (%) 98 08/17/18 09:00 Constitutional: Yes: Calm Eyes: Yes: WNL HENT: Yes: WNL Neck: Yes: WNL Cardiovascular: Yes: Regular Rate and Rhythm Respiratory: Yes: Diminished Gastrointestinal: Yes: Tenderness ...Rectal Exam: Yes: Deferred Genitourinary: Yes: WNL Breast(s): Yes: Other (not examined) Musculoskeletal: Yes: Other (lower ext trace edema) Edema: Yes Edema: LLE: Trace, RLE: Trace Peripheral Pulses WNL: Yes Integumentary: Yes: WNL Wound/Incision: Yes: Clean/Dry Neurological: Yes: Alert, Oriented Psychiatric: Yes: Alert, Oriented Labs: CBC, BMP 08/17/18 05:45 08/17/18 05:45 Problem List - Problems (1) Abdominal pain Code(s): R10.9 - UNSPECIFIED ABDOMINAL PAIN Qualifiers: Abdominal location: lower abdomen, unspecified Qualified Code(s): R10.30 - Lower abdominal pain, unspecified (2) Dehydration Code(s): E86.0 - DEHYDRATION (3) Diarrhea Code(s): R19.7 - DIARRHEA, UNSPECIFIED Qualifiers: Diarrhea type: unspecified type Qualified Code(s): R19.7 - Diarrhea, unspecified (4) Nausea and vomiting Code(s): R11.2 - NAUSEA WITH VOMITING, UNSPECIFIED Qualifiers: Vomiting type: unspecified Vomiting Intractability: non-intractable Qualified Code(s): R11.2 - Nausea with vomiting, unspecified (5) Tachycardia Code(s): R00.0 - TACHYCARDIA, UNSPECIFIED Impression/Plan Impression/Plan: Patient for transfer to [place] cardiac cath. Visit type - Emergency Visit Emergency Visit: Yes ED Registration Date: 08/16/18 Care time: The patient presented to the Emergency Department on the above date and was hospitalized for further evaluation of their emergent condition. - New Patient This patient is new to me today: Yes Date on this admission: 08/17/18 - Critical Care Critical Care patient: No - Discharge Referral Referred to [facility] No
[2018-08-17 14:20] VITALS: BP 169/77; PULSE 80; TEMP 97.8
--- NOTE | 2018-08-17 15:11 | EKG ---
Test Reason : Blood Pressure : / mmHG Vent. Rate : 081 BPM Atrial Rate : 081 BPM P-R Int : 188 ms QRS Dur : 090 ms QT Int : 424 ms P-R-T Axes : 029 -49 -07 degrees QTc Int : 492 ms NORMAL SINUS RHYTHM POSSIBLE LEFT ATRIAL ENLARGEMENT LEFT ANTERIOR FASCICULAR BLOCK LEFT VENTRICULAR HYPERTROPHY NONSPECIFIC ST ABNORMALITY PROLONGED QT ABNORMAL ECG WHEN COMPARED WITH ECG OF 16-AUG-2018 21:24, NO SIGNIFICANT CHANGE WAS FOUND Confirmed by JESSICA MUNGUIA MD ([id number]) on 08/17/2018 3:11:05 PM Referred By: HOSPATILIST Confirmed By:JESSICA MUNGUIA MD
--- NOTE | 2018-08-17 15:16 | EKG ---
Test Reason : Blood Pressure : / mmHG Vent. Rate : 077 BPM Atrial Rate : 077 BPM P-R Int : 188 ms QRS Dur : 080 ms QT Int : 448 ms P-R-T Axes : 028 -47 -04 degrees QTc Int : 506 ms NORMAL SINUS RHYTHM LEFT ANTERIOR FASCICULAR BLOCK VOLTAGE CRITERIA FOR LEFT VENTRICULAR HYPERTROPHY NONSPECIFIC ST ABNORMALITY PROLONGED QT ABNORMAL ECG Confirmed by JESSICA MUNGUIA MD ([id number]) on 08/17/2018 3:16:17 PM Referred By: ANNIE Confirmed By:JESSICA MUNGUIA MD
--- NOTE | 2018-08-17 16:06 | DS ---
Physical Examination Vital Signs: Vital Signs Temperature 97.8 F 08/17/18 14:19 Pulse Rate 80 08/17/18 14:19 Respiratory Rate 16 08/17/18 14:19 Blood Pressure 169/77 08/17/18 14:19 O2 Sat by Pulse Oximetry (%) 98 08/17/18 09:00 Constitutional: Yes: No Distress, Calm Eyes: Yes: WNL HENT: Yes: WNL Neck: Yes: WNL Cardiovascular: Yes: Regular Rate and Rhythm Respiratory: Yes: Diminished Gastrointestinal: Yes: Normal Bowel Sounds, Soft ...Rectal Exam: Yes: Deferred Musculoskeletal: Yes: Other (lower ext weakness) Edema: LLE: Trace Peripheral Pulses WNL: Yes Labs: CBC, BMP 08/17/18 05:45 08/17/18 05:45 Discharge Summary Reason For Visit: TACHYCARDIA/DEHYDRATION/ABD.PAIN/N,V,D. Current Active Problems Abdominal pain (Acute) Dehydration (Acute) Diarrhea (Acute) Nausea and vomiting (Acute) Tachycardia (Acute) Hospital Course: Patient is a 67 year old female with a significant past medical history of hypertension, diverticulitis, recurrent sinusitis, and anxiety. Presented to the ED with a complaint of LLQ pain with subjective fevers of 102 and diarrhea for apx 2 days. En route to the ED she felt her heart pounding and beating fast. She denies chest pain, SOB, MORRIS, orthopnea, but last week her both legs swelled up. She was initially admitted to [facility] and transferred to [facility] for elevated troponins. She will be tranferred to [facility] for cardiac cath today. Imaging. ECG: T wave inversions, troponins 1.25, 2.27, 1.74 Patient transfer to [facility] for cardiac cath. Condition: Fair - Instructions Disposition: TRANSFER ACUTE CARE/OTHER HOSP - Home Medications Comprehensive Discharge Medication List: Ambulatory Orders Clonazepam [Klonopin] 1 mg PO DAILY 08/15/18 Cyclobenzaprine HCl [Flexeril 10 mg] 10 mg PO TID PRN 08/16/18 Diazepam [Valium] 5 mg PO Q6H 08/16/18 Fluoxetine HCl [Prozac -] 40 mg PO DAILY 08/16/18 Hydrocodone/Acetaminophen [[place] 7.5-325 Tablet] 1 each PO QID PRN 08/16/18 Metoprolol Succinate [Toprol Xl] 100 mg PO DAILY 08/16/18 Zolpidem Tartrate [Ambien] 5 mg PO HS 08/16/18 This patient is new to me today: Yes Date on this admission: 08/17/18 Emergency Visit: Yes ED Registration Date: 08/16/18 Care time: The patient presented to the Emergency Department on the above date and was hospitalized for further evaluation of their emergent condition. Critical Care patient: No - Discharge Referral Referred to [facility] No
--- NOTE | 2018-08-18 18:01 | HOSP ---
Physical Examination Vital Signs: Vital Signs Temperature 97.8 F 08/17/18 14:19 Pulse Rate 80 08/17/18 14:19 Respiratory Rate 16 08/17/18 14:19 Blood Pressure 169/77 08/17/18 14:19 O2 Sat by Pulse Oximetry (%) 98 08/17/18 09:00 Labs: CBC, BMP 08/17/18 05:45 08/17/18 05:45 Hospitalist Encounter Assessment: Informed by lab that patient has + blood cultures as well as Ecoli in her urine. Blood culture shows 1 positive GP bacilli (anerobic bottle) Called [place] as patient was transferred for cardiac cath yesterday and I spoke to Kristyn Damon RN who is currently assigned to her. Informed her of the microbiology. As per RN, they will repeat blood cultures at [facility].
== END 2018-08-17 17:20 | disposition short-term general hospital (02) | DRG 282 ==
LOC: FER 23:05 → FM/S 08-16 03:19 → UNDOADMIN 08-16 05:06 → J4S 08-16 18:44
PROVIDERS: ADMIT Internal Medicine; ATTEND Nurse Practitioner Family
DX: I21.4 Non-ST elevation (NSTEMI) myocardial infarction (principal); F41.9 Anxiety disorder, unspecified; E86.0 Dehydration; R00.0 Tachycardia, unspecified; I10 Essential (primary) hypertension; E78.5 Hyperlipidemia, unspecified
CPT/HCPCS: 36415; 71045-TC-FY; 74177-TC; 80048; 80053; 80061; 81003; 81015; 82550; 83605; 83690; 83735; 84484; 85025; 87040; 87077; 87086; 87186; 93005; 93010; 93306-TC; 99285-25; J7030